=== PATIENT | female | born 1990 | race Two or more races ===

== ENCOUNTER 2017-10-15 07:28 | Emergency (ER) | payer BC ==
[~2017-10-15] VITALS: Ht 165.1 cm; Wt 52.2 kg
[2017-10-15 07:30] VITALS: BP 116/70
[2017-10-15 08:01] LABS: APPEARANCE,URINE CLOUDY (CLEAR); BILIRUBIN,URINE 1+ (NEGATIVE); BLOOD, URINE 3+ Ery/uL (NEGATIVE); COLOR,URINE ORANGE (YELLOW); KETONES,URINE TRACE (NEGATIVE); LEUKOCYTE ESTERASE ,URINE 2+ (NEGATIVE); NITRITE, URINE POSITIVE (NEGATIVE); PROTEIN,URINE 2+ mg/dl (NEGATIVE); UGLUCOSE TRACE mg/dL (NEGATIVE)
[2017-10-15 08:09] LABS: RBC,URINE 81-100 /HPF (0-2); WBC,URINE 21-50 /HPF (0-3)
[2017-10-15 08:10] LABS: BACTERIA,URINE Few /HPF (None Seen); SQUAMOUS EPITHELIAL CELL,UR Few /HPF (None Seen)
[2017-10-15] MEDS ORDERED: IBUPROFEN 400 MG TABLET ONE (08:16)
[2017-10-15] MEDS ORDERED: IBUPROFEN 400 MG TABLET PO ONE (08:30)
== END 2017-10-15 08:24 | disposition home or self-care (01) ==
LOC: ER 07:30
DX: N39.0 Urinary tract infection, site not specified (principal); F10.10 Alcohol abuse, uncomplicated; F17.200 Nicotine dependence, unspecified, uncomplicated; Z88.1 Allergy status to other antibiotic agents
CPT/HCPCS: 81001; 84703; 87077; 87086; 87186; 99284; A4606; Z7610; 81000-TC

== ENCOUNTER 2019-05-07 12:57 | Emergency (ER) | payer BC ==
[~2019-05-07] VITALS: Ht 165.1 cm; Wt 54.4 kg
[2019-05-07] MEDS ORDERED: METOCLOPRAMIDE HCL 10 MG/2 ML VIAL IV ONE (14:00)
[2019-05-07] MEDS ORDERED: IV NS 0.9% 1,000 ML BAG IV ONE (14:00)
[2019-05-07] MEDS ORDERED: diphenhydrAMINE HCL 50 MG/ML VIAL IV ONE (14:00)
--- NOTE | 2019-05-07 14:00 | NUR ---
Pt aware of plan of care Has dog at side for "emotional support" Discussed necessity of having family parts picker "NO one at home today I will try to call"
[2019-05-07] MEDS ORDERED: METOCLOPRAMIDE HCL 10 MG/2 ML VIAL ONE (14:14)
[2019-05-07] MEDS ORDERED: diphenhydrAMINE HCL 50 MG/ML VIAL ONE (14:14)
[2019-05-07 14:33] LABS: BASOPHILS # (AUTO) 0.1 /CMM (0.0-0.2); BASOPHILS % (AUTO) 1.4 % (0.0-2.0); EOSINOPHILS % (AUTO) 1.3 % (0.0-6.0); HEMATOCRIT 37 % (33-45); HEMOGLOBIN 12.9 g/dL (11.5-14.8); LYMPHOCYTES # (AUTO) 1.7 /CMM (0.8-4.8); LYMPHOCYTES % (AUTO) 31.5 % (20.0-44.0); MEAN CORPUSCULAR HGB CONC 35 g/dl (31.0-36.0); MEAN CORPUSCULAR VOLUME 94 fL (82-100); MONOCYTES # (AUTO) 0.4 /CMM (0.1-1.30); MONOCYTES % (AUTO) 7.9 % (2.0-12.0); NEUTROPHILS # (AUTO) 3.2 /CMM (1.8-8.9); NEUTROPHILS % (AUTO) 57.9 % (43.0-81.0); PLATELET COUNT (AUTO) 201 /CMM (150-450); RED BLOOD CELL COUNT(AUTO) 3.96 MIL/uL (4.0-5.2); WHITE BLOOD COUNT (AUTO) 5.4 K/uL (4.3-11.0)
[2019-05-07 14:33] LABS: APPEARANCE,URINE Clear (CLEAR); BILIRUBIN,URINE Negative (NEGATIVE); BLOOD, URINE Negative Ery/uL (NEGATIVE); COLOR,URINE Yellow (YELLOW); KETONES,URINE Negative (NEGATIVE); LEUKOCYTE ESTERASE ,URINE Negative (NEGATIVE); NITRITE, URINE Negative (NEGATIVE); PROTEIN,URINE Negative (NEGATIVE); UGLUCOSE Negative (NEGATIVE); UROBILINOGEN,URINE 0.2 EU/dL (0.2)
[2019-05-07 14:40] LABS: CALCIUM, SERUM 8.8 mg/dL (8.5-10.1); CREATININE 0.7 mg/dL (0.6-1.3); POTASSIUM 3.6 mmol/L (3.5-5.1)
[2019-05-07 14:46] LABS: ALBUMIN 4.2 g/dL (3.4-5.0); BILIRUBIN,DIRECT 0.1 mg/dL (0.0-0.2); BILIRUBIN,TOTAL 0.4 mg/dL (0.2-1.0); TOTAL PROTEIN, SERUM 7.3 g/dL (6.4-8.2)
--- NOTE | 2019-05-07 16:00 | NUR ---
Sleeping NO obvious distress
--- NOTE | 2019-05-07 17:59 | NUR ---
Pt states "Feeling better" Await Neuro consult. Emotional support animal/dog remains at bedside Pt stated "My BF is coming to take him home"
[2019-05-07] MEDS ORDERED: ASPIRIN 325 MG TABLET PO ONE (18:30)
[2019-05-07] MEDS ORDERED: ASPIRIN 325 MG TABLET ONE (18:35)
[2019-05-07 18:38] VITALS: BP 116/65
--- NOTE | 2019-05-07 18:38 | NUR ---
Ablr to tolerate po fluids. NO acute changes Patient discharged to home in stable condition. Written and verbal after care instructions given. Patient verbalizes understanding of instruction.
== END 2019-05-07 18:39 | disposition home or self-care (01) ==
LOC: ER 12:59
DX: R51 Headache (principal); H53.2 Diplopia; R53.1 Weakness; R20.2 Paresthesia of skin; F41.9 Anxiety disorder, unspecified; F17.200 Nicotine dependence, unspecified, uncomplicated; Z88.1 Allergy status to other antibiotic agents
CPT/HCPCS: 36415; 70450; 80048; 80076; 81001; 84703; 85025; 93005; 96374; 96375; 99284; J1200; J2765; J7030; 81000-TC